=== PATIENT | female | born 1945 | race Caucasian/White ===

== ENCOUNTER 2017-01-29 07:37 | Day surgery (SDC) | payer BC ==
--- NOTE | ~2017-01-29 | EGD ---
EGD REPORT [facility] [address] [address] NAME: EDY JEROME : [birth year] STATUS : REG [facility]#: [id number] AGE: 71 ADM/REG DATE : 01/29/17 MR#: [id number] REPORT SERV DATE: 01/29/17 DICTATED BY: APPLE LAURENT DATE: 01/29/17 REPORT STATUS : Draft TRANSCRIBED BY: [facility] DATE: 01/29/17 Endoscopy Center Patient Name: Edy Jerome Date of : 1945 Attending MD: APPLE LAURENT MD Procedure Date No Time: 01/29/2017 Procedure: Upper GI endoscopy Indications: Follow-up of acute gastric ulcer Referring MD: CARRINGTON PRICE Medicines: as per anesthesia Complications: No immediate complications. Procedure: Pre-Anesthesia Assessment: - ASA Grade Assessment: II - A patient with mild systemic disease. After obtaining informed consent, the endoscope was passed under direct vision. Throughout the procedure, the patient's blood pressure, pulse, and oxygen saturations were monitored continuously. The GIF [id number] was introduced through the mouth, and advanced to the third part of duodenum. The upper GI endoscopy was accomplished without difficulty. The patient tolerated the procedure. Findings: The examined esophagus was normal. Localized mild inflammation characterized by erythema and friability was found in the gastric antrum. Biopsies were taken with a cold forceps for histology. A deformity was found in the prepyloric region of the stomach. The cardia and gastric fundus were normal on retroflexion. The examined duodenum was normal. Impression: - Normal esophagus. - Gastritis. Biopsied. - Acquired deformity in the prepyloric region of the stomach. - Normal examined duodenum. Recommendation: - Await pathology results. - Continue present medications. Procedure Code(s): --- Professional --- 70967, Esophagogastroduodenoscopy, flexible, transoral; with biopsy, single or multiple EGD REPORT [facility] [address] [facility] [place]. [address] NAME: EDY JEROME : [birth year] STATUS : REG [facility] PAT#: [id number] AGE: 71 ADM/REG DATE : 01/29/17 MR#: [id number] REPORT SERV DATE: 01/29/17 DICTATED BY: APPLE LAURENT DATE: 01/29/17 REPORT STATUS : Draft TRANSCRIBED BY: [employer] DATE: 01/29/17 Diagnosis Code(s): --- Professional --- K29.70, Gastritis, unspecified, without bleeding K31.89, Other diseases of stomach and duodenum K25.3, Acute gastric ulcer without hemorrhage or perforation CPT copyright 2013 [employer]. All rights reserved. The codes documented in this report are preliminary and upon scanner supervisor review may be revised to meet current compliance requirements. APPLE LAURENT MD 01/29/2017 9:00 AM This report has been signed electronically. Number of Addenda: 0 Note Initiated On: 01/29/2017 8:36 AM Scope Withdrawal Time 0 hours 0 minutes 0 seconds [address] [place] [address]
[~2017-01-29 07:37] MED LIST: ALEVE220 MG PO; CRESTOR5 MG PO; NORV5 PO; PEPTO-BISMOL TA1 TAB PO; PRILO PO; TOPXL100 PO
== END 2017-01-29 23:59 | disposition home or self-care (01) ==
LOC: DMU 07:37
PROVIDERS: Internal Medicine Gastroenterology
PROC: 0DB68ZX Excision of Stomach, Via Natural or Artificial Opening Endoscopic, Diagnostic (ICD-10-PCS; principal; 2017-01-29 09:00)
DX: K25.3 Acute gastric ulcer without hemorrhage or perforation (principal); K31.89 Other diseases of stomach and duodenum; E78.5 Hyperlipidemia, unspecified; L40.9 Psoriasis, unspecified; K21.9 Gastro-esophageal reflux disease without esophagitis; E78.00 Pure hypercholesterolemia, unspecified; I10 Essential (primary) hypertension; Z88.1 Allergy status to other antibiotic agents; Z79.899 Other long term (current) drug therapy; Z86.010 Personal history of colon polyps; Z90.49 Acquired absence of other specified parts of digestive tract; Z98.890 Other specified postprocedural states
CPT/HCPCS: 88305